=== PATIENT | male | born 1960 ===

== ENCOUNTER 2018-04-08 05:50 | Day surgery (SDC) | payer OTHER ==
[~2018-04-08 05:50] MED LIST: BREO ELLIPTA 21 EACH IH; LOSARTAN-HCTZ1 EACH PO; SYNTHROID125 MCG PO
== END 2018-04-08 12:55 | disposition home or self-care (01) ==
LOC: CIR.AMB 05:50
DX: H65.492 Other chronic nonsuppurative otitis media, left ear (principal); H72.92 Unspecified perforation of tympanic membrane, left ear

== ENCOUNTER 2019-11-24 05:15 | Day surgery (SDC) | payer OTHER ==
[~2019-11-24 05:15] MED LIST changes: +VIT B PO
== END 2019-11-24 12:10 | disposition home or self-care (01) ==
LOC: CIR.AMB 05:15 → ADM 12:45 → CIR.AMB 12:45
DX: H60.42 Cholesteatoma of left external ear (principal); H61.322 Acquired stenosis of left external ear canal secondary to inflammation and infection